=== PATIENT | male | born 1990 | race Two or more races ===

== ENCOUNTER 2023-11-10 13:04 | Emergency (ER) | payer OTHER ==
[~2023-11-10] VITALS: Ht 167.6 cm; Wt 95.7 kg
[2023-11-10] MEDS ORDERED: WELLBUTRIN SR150 MG PO (13:44)
[2023-11-10] MEDS ORDERED: XANAX XR0.5 MG PO (13:45)
[2023-11-10] MEDS ORDERED: KETOROLAC TROMETHAMINE 60 MG VIAL IM ONE (13:45)
[2023-11-10] MEDS ORDERED: NEURONTIN300 MG (13:45)
[2023-11-10] MEDS ORDERED: AMLODIPINE-OLM1 EAC2 (13:46)
[2023-11-10] MEDS ORDERED: TUSNEL LIQUID178 ML PO (14:38)
[2023-11-10] MEDS ORDERED: ZITHROMAX500 MG PO (14:38)
== END 2023-11-10 15:05 | disposition home or self-care (01) ==
LOC: ER 13:04
DX: S93.491A Sprain of other ligament of right ankle, initial encounter (principal); X50.9XXA Other and unspecified overexertion or strenuous movements or postures, initial encounter; Y93.89 Activity, other specified; Y92.89 Other specified places as the place of occurrence of the external cause

== ENCOUNTER 2024-05-26 21:08 | Emergency (ER) | payer OTHER ==
[~2024-05-26] VITALS: Ht 167.6 cm; Wt 93.4 kg
[~2024-05-26 21:08] MED LIST: AMLODIPINE-OLM1 EAC2; NEURONTIN300 MG; TUSNEL LIQUID178 ML PO; WELLBUTRIN SR150 MG PO; XANAX XR0.5 MG PO; ZITHROMAX500 MG PO
[2024-05-26] MEDS ORDERED: PROZAC10 MG PO (21:30)
[2024-05-26] MEDS ORDERED: PROTONIX20 MG PO (21:30)
[2024-05-26] MEDS ORDERED: NALTREXONE HCL50 MG PO (21:30)
[2024-05-26] MEDS ORDERED: AMLODIPINE (21:56)
[2024-05-26 22:16] LABS: MEAN CELL VOLUME 83.2 fL (80.0-100.00); MEAN CORPUSCULAR HEMOGLOBIN 28.4 pg (27.00-32.0); MEAN CORPUSCULAR HGB CONC 34.1 g/dl (32.0-36.0); PLATELET COUNT 295 K/uL (150-450); RED BLOOD COUNT 4.93 M/uL (4.00-6.00); RED CELL DISTRIBUTION WIDTH 13.8 % (11.5-14.5)
[2024-05-26 22:38] LABS: ALBUMIN 4.1 gm/dL (3.4-5.0); BILIRUBIN TOTAL 0.25 mg/dL (0.3-1.2); CREATININE SERUM 1.01 mg/dL (0.70-1.30); GFR 84.56; GLOBULINA 3.7 G/DL (2.4-3.5); POTASSIUM 3.74 mEq/L (3.5-5.1); TOTAL PROTEIN 7.8 gm/dL (6.4-8.2)
[2024-05-26] MEDS ORDERED: COZAAR50 MG PO (22:49)
== END 2024-05-26 22:54 | disposition home or self-care (01) ==
LOC: ER 21:10
PROVIDERS: General Practice
DX: R51.9 Headache, unspecified (principal); I10 Essential (primary) hypertension; F31.89 Other bipolar disorder

== ENCOUNTER 2024-09-12 19:20 | Emergency (ER) | payer OTHER ==
[~2024-09-12] VITALS: Ht 167.6 cm; Wt 90.7 kg
[~2024-09-12 19:20] MED LIST changes: +AMLODIPINE; +COZAAR50 MG PO; +NALTREXONE HCL50 MG PO; +PROTONIX20 MG PO; +PROZAC10 MG PO
[2024-09-12] MEDS ORDERED: ALPRAZOLAM1 MG PO (19:54)
[2024-09-12] MEDS ORDERED: TRAZODONE HCL50 MG PO (19:54)
[2024-09-12] MEDS ORDERED: DIVALPROEX SOD250 MG PO (19:54)
[2024-09-12] MEDS ORDERED: IBU600 MG PO (21:56)
[2024-09-12] MEDS ORDERED: KETOROLAC TROMETHAMINE 60 MG VIAL IM ONE ×2 (22:00→22:06)
[2024-09-12] MEDS ORDERED: DEXAMETHASONE SODIUM PHOSPHATE 4 MG/ML VIAL IM ONE (22:00)
[2024-09-12] MEDS ORDERED: ORPHENADRINE CITRATE 30 MG/ML AMPUL IM ONE (22:00)
[2024-09-12] MEDS ORDERED: ORPHENADRINE CITRATE 30 MG/ML AMPUL ONE (22:06)
[2024-09-12] MEDS ORDERED: DEXAMETHASONE SODIUM PHOSPHATE 4 MG/ML VIAL ONE (22:06)
== END 2024-09-12 22:18 | disposition home or self-care (01) ==
LOC: ER 19:23
DX: R07.89 Other chest pain (principal)

== ENCOUNTER 2024-11-22 11:46 | Inpatient (IN) | payer OTHER ==
[~2024-11-22] VITALS: Ht 167.6 cm; Wt 92.1 kg
[~2024-11-22 11:46] MED LIST changes: +ALPRAZOLAM1 MG PO; +DIVALPROEX SOD250 MG PO; +IBU600 MG PO; +TRAZODONE HCL50 MG PO
[2024-11-22] MEDS ORDERED: DEPAKOTE ER500 MG (12:15)
[2024-11-22] MEDS ORDERED: PROZAC20 MG (12:15)
[2024-11-22] MEDS ORDERED: XANAX2 MG (12:16)
[2024-11-22] MEDS ORDERED: KETOROLAC TROMETHAMINE 60 MG VIAL IM ONE ×2 (12:42→12:45)
[2024-11-22 13:14] LABS: HEMATOCRIT 42.8 % (39.0-48.0); MEAN CELL VOLUME 82.2 fL (80.0-100.00); MEAN CORPUSCULAR HEMOGLOBIN 26.9 pg (27.00-32.0); MEAN CORPUSCULAR HGB CONC 32.7 g/dl (32.0-36.0); PLATELET COUNT 228 K/uL (150-450)
[2024-11-22 13:43] LABS: CALCIUM 8.5 mg/dL (8.5-10.1); CREATININE SERUM 0.88 mg/dL (0.70-1.30); GFR 98.55; POTASSIUM 3.71 mEq/L (3.5-5.1)
[2024-11-22 16:26] LABS: PH,URINE 7.5 (5.0-8.0); URINE APPEARANCE Clear; URINE BILIRRUBIN Negative (NEGATIVE); URINE BLOOD Negative; URINE COLOR Dark Yellow; URINE GLUCOSE Negative (NEGATIVE); URINE KETONE Trace (NEGATIVE); URINE LEUKOCYTE Trace; URINE NITRATE Negative; URINE PROTEIN 30 (NEGATIVE)
[2024-11-22 16:27] LABS: URINE BACTERIA 4.8 uL (0.0-1933); URINE EPITHELIAL CELLS 5.6 uL (0.0-38.8); URINE RBC 12.3 uL (0.0-20.8); URINE WBC 3.3 uL (0.0-23.2)
[2024-11-22] MEDS ORDERED: 0.9 % SODIUM CHLORIDE 1,000 ML IV SCH (18:00)
[2024-11-22] MEDS ORDERED: CEFTRIAXONE SODIUM 2,000 MG in 0.9 % SODIUM CHLORIDE 100 ML IV SCH (18:01)
[2024-11-22] MEDS ORDERED: METRONIDAZOLE/SODIUM CHLORIDE 100 ML IV SCH (18:01)
[2024-11-22] MEDS ORDERED: FAMOTIDINE/PF 20 MG in 0.9 % SODIUM CHLORIDE 8 ML IV PUSH SCH (18:02)
[2024-11-22] MEDS ORDERED: ACETAMINOPHEN 500 MG GEL..CAP PO PRN (18:15)
[2024-11-22] MEDS ORDERED: ONDANSETRON HCL 4 MG in 0.9 % SODIUM CHLORIDE 50 ML IV PRN (18:15)
[2024-11-22] MEDS ORDERED: KETOROLAC TROMETHAMINE 30 MG VIAL IU ONE (18:15)
[2024-11-22] MEDS ORDERED: MORPHINE SULFATE 4 MG/ML CARTRIDGE IV PRN (18:15)
[2024-11-22] MEDS ORDERED: CEFTRIAXONE SODIUM 2,000 MG VIAL ONE (20:41)
[2024-11-22] MEDS ORDERED: METRONIDAZOLE/SODIUM CHLORIDE 500 MG/100 ML PIGGYBACK IV ONE (20:41)
[2024-11-22] MEDS ORDERED: KETOROLAC TROMETHAMINE 30 MG VIAL ONE (20:41)
[2024-11-22] MEDS ORDERED: FAMOTIDINE/PF 20 MG/2 ML VIAL ONE (20:41)
[2024-11-22 21:36] LABS: INR 1.02; PARTIAL THROMBOPLASTIN TIME 28.5 SECONDS (22.0-34.0); PROTHROMBIN TIME 11.1 SECONDS (9.0-11.5)
[2024-11-23 01:18] VITALS: BP 114/65; O2SAT 97
[2024-11-23 08:30] VITALS: BP 146/79
[2024-11-23] MEDS ORDERED: KETOROLAC TROMETHAMINE 30 MG VIAL IV NR (10:30)
== END 2024-11-23 11:41 | disposition home or self-care (01) | DRG 392 ==
LOC: ER 11:47 → MEDI 19:11
PROVIDERS: Emergency Medicine; General Practice; ADMIT Internal Medicine; ATTEND Internal Medicine
PROC: BW21ZZZ Computerized Tomography (CT Scan) of Abdomen and Pelvis (ICD-10-PCS; principal; 2024-11-22)
DX: R11.2 Nausea with vomiting, unspecified (principal); R10.31 Right lower quadrant pain; M54.9 Dorsalgia, unspecified

== ENCOUNTER 2025-04-02 06:11 | Emergency (ER) | payer OTHER ==
[~2025-04-02] VITALS: Ht 167.6 cm; Wt 93.4 kg
[~2025-04-02 06:11] MED LIST changes: +DEPAKOTE ER500 MG; +PROZAC20 MG; +XANAX2 MG
[2025-04-02] MEDS ORDERED: CLONAZEPAM1 M1 PO (06:26)
[2025-04-02] MEDS ORDERED: ACETAMINOPHEN 500 MG GEL..CAP PO STA (08:25)
[2025-04-02] MEDS ORDERED: LIDOCAINE HCL 1% 10ML VIAL IJ STA (08:25)
== END 2025-04-02 12:47 | disposition home or self-care (01) ==
LOC: ER 06:11
DX: S51.011A Laceration without foreign body of right elbow, initial encounter (principal); W19.XXXA Unspecified fall, initial encounter; Y93.79 Activity, other specified sports and athletics; Y92.89 Other specified places as the place of occurrence of the external cause; Y99.8 Other external cause status